=== PATIENT | male | born 1975 | race Caucasian/White ===

== ENCOUNTER 2016-12-05 16:14 | Emergency (ER) | payer OTHER ==
[2016-12-05 16:27] VITALS: BP 148/103; PULSE 75; TEMP 98.2; BMI 23.3
--- NOTE | 2016-12-05 17:12 | PDOC ---
History of Present Illness - General Chief Complaint: Pain, Acute Stated Complaint: SHOULDER PAIN Time Seen by Provider: 12/05/16 17:06 History Source: Patient Exam Limitations: No Limitations - History of Present Illness Initial Comments: 12/05/16 17:15 My Chief Complaint: b/l shoulder pain left greater than rt. History of present illness: Patient is a 41-year-old male with no significant medical history here today complaining of bilateral shoulder pain left much greater than right since 12/02/2016. Patient has decreased range of motion of left shoulder and full range of motion of right shoulder. Patient denies any numbness of his arms or hands. Patient denies any neck pain. Patient reports that on 12/02/2016 he was working on an elevated platform and had to hold his body weight with his left arm and pain with his right arm when he felt a sharp pain in his left upper dorsal forearm. 12/05/16 17:17 12/05/16 17:50 Occurred: reports: other (3 ) Severity: reports: severe (left shoulder pain ) Upper Extremity Pain Location: left: shoulder Method of Injury: reports: other (pullled left shoulder at work on 12/02/16) Modifying Factors: improves with: immobilization Extremity Pain Location - Extremity Pain Location Extremity Pain Locations: left: other (shoulder ) Past History - Past Medical History Allergies/Adverse Reactions: Allergies Allergy/AdvReac Type Severity Reaction Status Date / Time No Known Allergies Allergy Verified 12/05/16 16:22 Home Medications: Ambulatory Orders Naproxen [Naprosyn -] 500 mg PO BID PRN #14 tablet MDD 2 12/05/16 Oxycodone HCl/Acetaminophen [Percocet 5-325 mg Tablet] 1 tab PO Q6H PRN #12 tablet MDD 4 12/05/16 Other medical history: denies - Surgical History Appendectomy: Yes - Immunization History Immunization Up to Date: Yes - Psycho/Social/Smoking Cessation Hx Anxiety: No Suicidal Ideation: No Smoking History: Never smoked Have you smoked in the past 12 months: No Information on smoking cessation initiated: No Hx Alcohol Use: No Drug/Substance Use Hx: No Review of Systems - Review of Systems Able to Perform ROS?: Yes Constitutional: No: Symptoms Reported HEENTM: No: Symptoms Reported Respiratory: No: Symptoms reported Cardiac (ROS): No: Symptoms Reported ABD/GI: No: Symptoms Reported : No: Symptoms Reported Musculoskeletal: Yes: Joint Pain (b/l shoulder pain left greater than rt. ), Muscle Pain (left distal bicep ). No: Joint Swelling Integumentary: No: Symptoms Reported Neurological: No: Symptoms reported *Physical Exam - Vital Signs Last Vital Signs Temp Pulse Resp BP Pulse Ox 98.2 F 75 20 148/103 97 12/05/16 16:22 12/05/16 16:22 12/05/16 16:22 12/05/16 16:22 12/05/16 16:22 - Physical Exam General Appearance: Yes: Appropriately Dressed Respiratory/Chest: positive: Lungs Clear, Normal Breath Sounds. negative: Chest Tender, Respiratory Distress Cardiovascular: positive: Regular Rhythm, Regular Rate, S1, S2 Extremity: positive: Normal Capillary Refill, Normal Inspection, Tender (left distal dorsal bicep), Other (no induration left upper medial or dorsal arm ). negative: Normal Range of Motion (left shoulder, rt shoulder FROM) Integumentary: positive: Normal Color Neurologic: positive: Alert, Respond to painful stimul, Responsive, Other ( motor left arm motor 3/strength 3). negative: Numbness, Sensory Deficit Procedures - Consent Consent obtained: From Patient - Splinting Pre-Proc Neuro Vasc Exam: normal Post-Proc Neuro Vasc Exam: normal Kimani Bandage: no Sling: No Complications: No Progress: 12/05/16 17:51 LEFT SHOULDER INMOBILIZATION Medical Decision Making - Medical Decision Making 12/05/16 17:15 12/05/16 17:17 Patient is a 41-year-old male with no significant medical history here today complaining of bilateral shoulder pain left much greater than right since 2016. Patient has decreased range of motion of left shoulder and full range of motion of right shoulder. Patient denies any numbness of his arms or hands. Patient denies any neck pain. Patient reports that on 12/02/2016 he was working on an elevated platform and had to hold his body weight with his left arm and pain with his right arm when he felt a sharp pain in his left upper dorsal forearm. Reports taking ibuprofen approximately 2 hours ago is trying to find out how many milligrams the tablets were. Patient reports that pain in left upper dorsal arm is currently a 10 out of 10 and right arm shoulder area patient does not have any pain presently. Patient has been partying pain patches nonnarcotic on these areas. left shoulder pain r/o rolando injury PLAN: xray left shoulder no abnormality toradol 60 mg IM now 12/05/16 17:37 shoulder immobilizer left 12/05/16 17:51 12/06/16 17:59 12/06/16 18:00 *DC/Admit/Observation/Transfer Diagnosis at time of Disposition: Shoulder pain, left Qualifiers: Chronicity: acute Qualified Code(s): M25.512 - Pain in left shoulder - Discharge Dispostion Disposition: HOME Condition at time of disposition: Stable - Prescriptions Prescriptions: Naproxen [Naprosyn -] 500 mg PO BID PRN #14 tablet MDD 2 PRN Reason: Pain Oxycodone HCl/Acetaminophen [Percocet 5-325 mg Tablet] 1 tab PO Q6H PRN #12 tablet MDD 4 PRN Reason: Severe Pain - Referrals Referrals: Oscar Mcarthur MD [Staff Physician] - - Patient Instructions Additional Instructions: Follow-up with orthopedist as soon as possible for further evaluation use shoulder immobilizer during the day in a semi-seated position with a pillow under her left arm Return to emergency room if symptoms worsen any numbness of left arm Patient voiced understanding of discharge instructions and all questions were answered
[2016-12-05] MEDS ORDERED: KETOROLAC TROMETHAMINE 60 MG/2 ML VIAL IM ONE (17:40)
[2016-12-05] MEDS ORDERED: KETOROLAC TROMETHAMINE 60 MG/2 ML VIAL ONE (17:42)
== END 2016-12-05 18:38 | disposition home or self-care (01) ==
LOC: JERFT 16:14
PROC: 3E0233Z Introduction of Anti-inflammatory into Muscle, Percutaneous Approach (ICD-10-PCS; principal; 2016-12-05)
DX: M25.512 Pain in left shoulder (principal)
CPT/HCPCS: 73030-TC-LT; 99281-25